=== PATIENT | female | born 1945 | race Caucasian/White ===

== ENCOUNTER 2025-02-25 12:56 | Emergency (ER) | payer OTHER ==
[2025-02-25 13:41] VITALS: BP 97/61; PULSE 75; RESP 18; TEMP 97.3; BMI 25.0
[2025-02-25] MEDS ORDERED: ACETAMINOPHEN INJECTION 100 ML ONE (14:41)
[2025-02-25 14:44] LABS: ABSOLUTE IMMATURE GRANULOCYTES 0.04 x10^3/uL (0.0-0.031); BASOPHILS # 0.05 x10^3/uL (0.01-0.08); EOSINOPHIL % 4.7 % (0.7-5.8); EOSINOPHILS # 0.41 x10^3/uL (0.04-0.36); HEMATOCRIT 30.6 % (34.1-44.9); HEMOGLOBIN 9.8 g/dL (11.2-15.7); MEAN CELL VOLUME 100.3 fl (79.4-94.8); MEAN PLT VOLUME 8.7 fl (9.4-12.3); MONOCYTE # 0.73 x10^3/uL (0.24-0.86); MONOCYTE % 8.4 % (4.7-12.5); PLATELET COUNT 392 x10^3/uL (182-369); RDW 15.5 % (12.5-17.0)
[2025-02-25] MEDS: ACETAMINOPHEN 1000 MG/100 ML BAG IVPB ONE (14:47)
[2025-02-25 15:16] LABS: POTASSIUM 3.5 mmol/L (3.5-5.1)
[2025-02-25 15:18] LABS: ALBUMIN 2.8 g/dl (3.4-5.0); BLOOD UREA NITROGEN 21.2 mg/dL (7-18); CALCIUM 9.4 mg/dL (8.5-10.1)
[2025-02-25 15:24] LABS: BILIRUBIN,TOTAL 0.4 mg/dL (0.2-1); TOT PROT 6.9 g/dl (6.4-8.2)
[2025-02-25 15:27] LABS: ERYTHROCYTE SEDIMENTATION RATE 104 mm/hr (0-30)
[2025-02-25 16:01] LABS: CREATININE 1.2 mg/dL (0.55-1.3)
== END 2025-02-25 16:55 | disposition home or self-care (01) ==
LOC: JER 12:56
PROC: 3E033NZ Introduction of Analgesics, Hypnotics, Sedatives into Peripheral Vein, Percutaneous Approach (ICD-10-PCS; principal; 2025-02-25)
DX: L97.419 Non-pressure chronic ulcer of right heel and midfoot with unspecified severity (principal)
CPT/HCPCS: 36415; 73630-TC-RT-FY; 80053; 85025; 85651; 86140; 93005; 93010; 99285-25; J0131